=== PATIENT | female | born 2000 | race African-American/Black ===

== ENCOUNTER → 2022-02-21 11:13 | Outpatient (CLI) | payer OTHER, SELFPAY ==
--- NOTE | ~2022-02-21 | US_ITS ---
EXAMINATION: US OB /maternal detail DATE: 02/21/2022 12:24 INDICATION: Second trimester anatomic survey TECHNIQUE: Real-time ultrasound of the pelvis was performed. COMPARISON: None. FINDINGS: There is a single living fetus in transverse lie. The placenta is anterior and 9 cm from the internal cervical os. There is a hypoechoic area along the margin of the placenta. The cervical length is 3.9 cm. heart rate is 149 beats per minute (bpm). cardiac activity and movement are n oted. The amniotic fluid index is subjectively normal. The following anatomy was identified as normal: 4 chamber heart 3 vessel cord cord insertion kidneys urinary bladder stomach spine diaphragm ventricles cisterna magna cerebellum The following biometric data were obtained: Biparietal diameter (BPD): 5.6 cm; head circumference (HC): 19.8 cm; abdominal circumference (AC): 16 .9 cm; femur length (FL): 3.2 cm. The femoral length to abdominal circumference ratio is greater than two standard deviations below the mean. These measurements are otherwise concordant. Estimated weight is 409 g +/- 61 g, which correlates with the 4th percentile when 06/23/2022 is u sed as estimated date of delivery. As single measurements, these parameters are each equal to the following estimated gestational ages w ith ranges of +/- 2 standard deviations: BPD: 23 weeks 0 days +/- 1 weeks 5 days. HC: 22 weeks 0 days +/- 1 weeks 3 days. AC: 22 weeks 0 days +/- 2 weeks 0 days. FL: 20 weeks 0 days +/- 1 weeks 6 days. estimated gestational age based solely on measurements from this exam is 21 weeks 5 days +/- 1 weeks 4 days. IMPRESSION: 1. Single living fetus in transverse lie. 2. Estimated weight is 409 g +/- 61 g, which correlates with the 4th percentile when 06/23/2022 i s used as estimated date of delivery. 3. Femoral length to abdominal circumference ratio greater than two standard deviations below the freddie n. 3. Hypoechoic area along the marginal placenta which could reflect small venous de la cruz versus slow flow ing placental vessels. Attention on follow-up examination is recommended. Reviewed, dictated and finalized at location B. IMPRESSION: 1. Single living fetus in transverse lie. 2. Estimated weight is 409 g +/- 61 g, which correlates with the 4th perc entile when 06/23/2022 is used as estimated date of delivery. 3. Femoral length to abdominal circumference ratio greater than two standard de viations below the mean. 3. Hypoechoic area along the marginal placenta which could reflect small venous de la cruz versus slow flowing placental vessels. Attention on follow-up examination is recommended.
== END ==
PROVIDERS: PCP Obstetrics & Gynecology; Visit Provider Obstetrics & Gynecology
DX: Z34.92 Encounter for supervision of normal pregnancy, unspecified, second trimester (principal); Z3A.21 21 weeks gestation of pregnancy
CPT/HCPCS: 76805

== ENCOUNTER 2022-03-20 16:22 | Outpatient (CLI) | payer OTHER, SELFPAY ==
--- NOTE | ~2022-03-20 | US_ITS ---
EXAMINATION: US OB follow up DATE: 03/20/2022 17:07 INDICATION: Venous de la cruz versus slow flowing placental vessels on prior ultrasound, second trimester TECHNIQUE: Real-time ultrasound of the pelvis was performed. The interpreting radiologist was not pre sent for the study. COMPARISON: 02/21/2022 FINDINGS: There is a single living fetus in breech presentation. The placenta is anterior/fundal. The previously described hypoechoic areas of the placenta are not definitely identified. cardiac a ctivity and movement are noted. heart rate is 144 beats per minute (bpm). The amniotic fl uid index is 11.1 cm which is normal (normal range: 8.9 cm to 22 cm). The following biometric data were obtained: Biparietal diameter (BPD): 6.3 cm; head circumference (HC): 22.7 cm; abdominal circumference (AC): 21 .4 cm; femur length (FL): 4.8 cm. These measurements are concordant. Estimated weight is 861 g +/- 129 g, which correlates with the 12th percentile when 06/21/2022 is used as estimated date of delivery. As single measurements, these parameters are each equal to the following estimated gestational ages w ith ranges of +/- 2 standard deviations: BPD: 25 weeks 5 days +/- 2 weeks 1 days. HC: 24 weeks 5 days +/- 2 weeks 0 days. AC: 25 weeks 6 days +/- 2 weeks 1 days. FL: 26 weeks 1 days +/- 2 weeks 1 days. estimated gestational age based solely on measurements from this exam is 25 weeks 4 days +/- 1 weeks 6 days. IMPRESSION: 1. Single living fetus in breech presentation. 2. Previously identified hypoechoic areas of the placenta not definitely identified. 3. Estimated weight is 861 g +/- 129 g, which correlates with the 12th percentile when 06/21/2022 is used as estimated date of delivery. Reviewed, dictated and finalized at location B. IMPRESSION: 1. Single living fetus in breech presentation. 2. Previously identified hypoechoic areas of the placenta not definitely identi fied. 3. Estimated weight is 861 g +/- 129 g, which correlates with the rcentile when 06/21/2022 is used as estimated date of delivery.
== END 2022-03-20 16:23 | disposition home or self-care (01) ==
PROVIDERS: PCP Obstetrics & Gynecology; Visit Provider Obstetrics & Gynecology
DX: Z34.92 Encounter for supervision of normal pregnancy, unspecified, second trimester (principal); Z3A.25 25 weeks gestation of pregnancy
CPT/HCPCS: 76816

== ENCOUNTER 2022-04-24 15:18 | Outpatient (CLI) | payer OTHER, SELFPAY ==
--- NOTE | ~2022-04-24 | US_ITS ---
EXAMINATION: US OB follow up DATE: 04/24/2022 16:09 INDICATION: Encounter for supervision of normal third trimester TECHNIQUE: Real-time ultrasound of the pelvis was performed. The interpreting radiologist was not pre sent for the study. COMPARISON: None. FINDINGS: There is a single living fetus in vertex presentation. The placenta is anterior. card iac activity and movement are noted. heart rate is 147 beats per minute (bpm). The amniot ic fluid index is 11.9 which is normal (normal range: 8.8 cm to 23.8 cm). The following biometric data were obtained: Biparietal diameter (BPD): 7.6 cm; head circumference (HC): 28.5 cm; abdominal circumference (AC): 28 .3 cm; femur length (FL): 6.0 cm. These measurements are concordant. Estimated weight is 1833 g +/- 275 g, which correlates with the 49th percentile when 06/23/2022 i s used as estimated date of delivery. As single measurements, these parameters are each equal to the following estimated gestational ages w ith ranges of +/- 2 standard deviations: BPD: 30 weeks 4 days +/- 3 weeks 1 days. HC: 31 weeks 3 days +/- 3 weeks 0 days. AC: 32 weeks 2 days +/- 3 weeks 0 days. FL: 31 weeks 2 days +/- 3 weeks 0 days. estimated gestational age based solely on measurements from this exam is 31 weeks 3 days +/- 2 weeks 1 days. IMPRESSION: 1. Single living fetus in vertex presentation. 2. Normal amniotic fluid index. 3. Estimated weight is 1833 g +/- 275 g, which correlates with the 49th percentile when 3 is used as estimated date of delivery. Reviewed, dictated and finalized at location B. [facility] IMPRESSION: 1. Single living fetus in vertex presentation. 2. Normal amniotic fluid index. 3. Estimated weight is 1833 g +/- 275 g, which correlates with the 49th p ercentile when 06/23/2022 is used as estimated date of delivery.
== END 2022-04-24 15:19 | disposition home or self-care (01) ==
PROVIDERS: PCP Obstetrics & Gynecology; Visit Provider Obstetrics & Gynecology
DX: Z34.90 Encounter for supervision of normal pregnancy, unspecified, unspecified trimester (principal)
CPT/HCPCS: 76816

== ENCOUNTER 2023-12-24 14:35 | Outpatient (CLI) | payer OTHER, SELFPAY ==
--- NOTE | ~2023-12-24 | US_ITS ---
EXAMINATION: US OB /maternal detail DATE: 12/24/2023 16:30 INDICATION: Encounter for supervision of normal . TECHNIQUE: Real-time ultrasound of the pelvis was performed. COMPARISON: None. FINDINGS: There is a single living fetus in vertex presentation. The placenta is posterior. heart rate i s 145 beats per minute (bpm). The amniotic fluid volume is subjectively normal. The cervical length i s 3.5 cm on transabdominal images, which is normal. The following biometric data were obtained: Biparietal diameter (BPD): 5.1 cm; head circumference (HC): 19.0 cm; abdominal circumference (AC): 16 .7 cm; femur length (FL): 3.6 cm. These measurements are concordant. Estimated weight is 428 g +/- 64 g, which correlates with the 94th percentile when 05/09/24 is used as estimated date of delivery. As single measurements, these parameters are each equal to the following estimated gestational ages: BPD: 21 weeks 2 days. HC: 21 weeks 2 days. AC: 21 weeks 5 days. FL: 21 weeks 2 days. estimated gestational age based solely on measurements from this exam is 21 weeks 3 days +/- 1 weeks 3 days. The cerebral ventricles, cerebellum, cisterna magna, and visualized portions of the spine are normal. The heart is not well visualized. The diaphragm, stomach, kidneys, and bladder are normal. The re are two umbilical arteries to yield a 3-vessel cord. The cord insertion is normal. IMPRESSION: 1. Single living fetus in vertex presentation. 2. Large for gestational age. Estimated weight is 428 g +/- 64 g, which correlates with the 94 th percentile when 05/09/24 is used as estimated date of delivery. 3. heart not well visualized. Otherwise normal anatomic survey. Reviewed, dictated and finalized at location E. IMPRESSION: 1. Single living fetus in vertex presentation. 2. Large for gestational age. Estimated weight is 428 g +/- 64 g, which correlates with the 94th percentile when 05/09/24 is used as estimated date of delivery. 3. heart not well visualized. Otherwise normal anatomic survey.
== END 2023-12-24 14:36 | disposition home or self-care (01) ==
LOC: ANHIMG 14:38
PROVIDERS: PCP Obstetrics & Gynecology; Visit Provider Obstetrics & Gynecology
DX: Z34.90 Encounter for supervision of normal pregnancy, unspecified, unspecified trimester (principal)
CPT/HCPCS: 76805